=== PATIENT | male | born 1990 | race Caucasian/White ===

== ENCOUNTER 2024-02-18 06:16 | Day surgery (SDC) | payer OTHER ==
[~2024-02-18 06:16] MED LIST: Sodium Chloride 0.9% 10 ML Syringe FLUSH PRN
[2024-02-18] MEDS ORDERED: Ondansetron 4 MG/2 ML SDV IVPUSH ONE (06:17)
[2024-02-18] MEDS ORDERED: Lactated Ringers 1,000 ML IV ONE (06:17)
[2024-02-18] MEDS ORDERED: fentaNYL 100 MCG/2 ML SDV IV ONE (06:17)
[2024-02-18] MEDS ORDERED: Rocuronium 100 MG/10 ML MDV IV ONE (06:17)
[2024-02-18] MEDS ORDERED: Propofol 200 MG/20 ML SDV IV ONE (06:17)
[2024-02-18] MEDS ORDERED: Dexamethasone 4 MG/ML SDV IV ONE (06:17)
[2024-02-18] MEDS ORDERED: Sugammadex Sodium 200 MG/2 ML VIAL IV ONE (06:17)
[2024-02-18] MEDS ORDERED: Ketorolac 30 MG/ML SDV IVPUSH ONE (06:17)
[2024-02-18] MEDS ORDERED: Succinylcholine 200 MG/10 ML MDV IV ONE (06:17)
[2024-02-18] MEDS ORDERED: Midazolam 1 MG/ML 2 ML SDV IV ONE (06:17)
[2024-02-18] MEDS: Lactated Ringers 1,000 ML IV SCH (07:02)
[2024-02-18] MEDS: ceFAZolin 2 GM Vial IVPUSH ONE (07:34)
[2024-02-18] MEDS: Bupivacaine 0.5% 30 ML SDV INJECT ONE (08:39)
[2024-02-18] MEDS: Lidocaine 1% with EPINEPHrine 1:100,000 20 ML MDV INJECT ONE (08:39)
[2024-02-18] MEDS: Acetaminophen/oxyCODONE 325-5 MG Tab PO PRN (10:10)
== END 2024-02-18 11:10 | disposition home or self-care (01) ==
LOC: FB.SDS 06:16
PROVIDERS: ATTEND Surgery
DX: K60.3 Anal fistula (principal); K62.89 Other specified diseases of anus and rectum
CPT/HCPCS: 00902; 45380; 46275; 88304; 88305; A9270; J0330; J0665; J0690; J1100; J1885; J2250; J2405; J2704; J3010; J3490; J7120